=== PATIENT | female | born 1985 | race Caucasian/White ===

== ENCOUNTER 2020-09-11 14:05 | Observation (INO) | payer OTHER ==
[~2020-09-11] VITALS: Ht 161 cm; Wt 83.9 kg
[2020-09-11 14:26] VITALS: BP 104/65
[2020-09-11] MEDS ORDERED: PREN-217 PO (14:28)
[2020-09-11 15:36] LABS: COVID AG,FIA SOURCE NASOPHARYNGEAL
== END 2020-09-11 15:40 | disposition home or self-care (01) ==
LOC: 4S 14:05
PROVIDERS: ADMIT Obstetrics & Gynecology; ATTEND Obstetrics & Gynecology
DX: O09.523 Supervision of elderly multigravida, third trimester (principal); Z20.828 Contact with and (suspected) exposure to other viral communicable diseases; Z3A.37 37 weeks gestation of pregnancy
CPT/HCPCS: 59025; 76805; 87426; 99219

== ENCOUNTER 2020-09-21 12:45 | Inpatient (IN) | payer OTHER ==
[~2020-09-21] VITALS: Ht 160 cm; Wt 89.8 kg
[~2020-09-21 12:45] MED LIST: PREN-217 PO
[2020-09-21] MEDS: OXYGEN THERAPY IH SCH ×2 (13:00→20:00)
[2020-09-21] MEDS ORDERED: FentaNYL CITRATE-PF 100 MCG/2 ML VIAL IVP PRN (13:00)
[2020-09-21] MEDS ORDERED: MINERAL OIL 90 ML BOTTLE TP ONE (13:00)
[2020-09-21] MEDS ORDERED: CITRIC ACID/SODIUM CITRATE 30 ML SOLUTION UDCUP PO PRN (13:00)
[2020-09-21] MEDS ORDERED: METHYLERGONOVINE MALEATE 0.2 MG/ML VIAL IM PRN (13:00)
[2020-09-21] MEDS ORDERED: RINGERS SOLUTION,LACTATED 1,000 ML IV PRN (13:00)
[2020-09-21] MEDS ORDERED: MISOPROSTOL 50 MCG TABLET PR ONE (13:00)
[2020-09-21] MEDS ORDERED: LIDOCAINE/PF 1% 30 ML VIAL SQ PRN (13:00)
[2020-09-21] MEDS ORDERED: MISOPROSTOL 25 MCG TABLET PR ONE (13:00)
[2020-09-21] MEDS ORDERED: OXYTOCIN 30 UNITS/LACT RINGERS 500 ML IV ONE (13:00)
[2020-09-21] MEDS ORDERED: METOCLOPRAMIDE HCL 5 MG/ML 2 ML VIAL IVP PRN (13:00)
[2020-09-21] MEDS ORDERED: MINERAL OIL 30 ML UDCUP VG ONE (13:15)
[2020-09-21 13:22] LABS: BASOPHILS % (AUTO) 0.4 % (0.0-2.0); EOSINOPHILS % (AUTO) 0.2 % (1.0-6.0); HEMATOCRIT 38.7 % (36-46); HEMOGLOBIN 12.8 g/dL (12.0-16.0); LYMPHOCYTES # (AUTO) 2.3 K/uL (1.0-4.8); LYMPHOCYTES % (AUTO) 23.5 % (22.0-44.0); MEAN CORPUSCULAR HEMOGLOBIN 31.2 pg (26.0-34.0); MEAN CORPUSCULAR VOLUME 95 fL (80-100); MONOCYTES # (AUTO) 0.5 K/uL (0.1-1.0); MONOCYTES % (AUTO) 5.1 % (2.0-9.0); NEUTROPHILS % (AUTO) 70.8 % (40.0-70.0); PLATELET COUNT (AUTO) 150 K/uL (150-450); RED CELL DISTRIBUTION WIDTH 13.1 % (11.5-14.5)
[2020-09-21] MEDS: RINGERS SOLUTION,LACTATED 1,000 ML IV SCH ×2 (13:47→16:54)
[2020-09-21 13:48] VITALS: BP 98/57
[2020-09-21] MEDS ORDERED: DiphenhydrAMINE HCL 50 MG/ML VIAL IVP PRN (14:30)
[2020-09-21] MEDS ORDERED: ONDANSETRON HCL 4 MG/2 ML VIAL IVP PRN (14:30)
[2020-09-21] MEDS ORDERED: ROPIVACAINE HCL/PF 0.2% 100 ML ED PRN (14:30)
[2020-09-21] MEDS ORDERED: OXYTOCIN 30 UNITS/LACT RINGERS 500 ML IV PRN (15:00)
[2020-09-21 15:26] LABS: COVID AG,FIA SOURCE NASOPHARYNGEAL
[2020-09-21] MEDS ORDERED: BUPIVACAINE HCL/PF 0.25% 10 ML VIAL IM ONE (16:22)
[2020-09-21] MEDS ORDERED: RINGERS SOLUTION,LACTATED 1,000 ML IV ONE (18:30)
[2020-09-21] MEDS ORDERED: OxyCODONE HCL/ACETAMINOPHEN 5-325 MG TABLET PO PRN ×2 (18:30)
[2020-09-21] MEDS ORDERED: MEASLES/MUMPS/RUBELLA VACCINE, LIVE 0.5 ML/VIAL SQ ONE (18:30)
[2020-09-21] MEDS ORDERED: GLYCERIN/WITCH HAZEL LEAF 40 PADS JAR TP PRN (18:30)
[2020-09-21] MEDS ORDERED: LANOLIN 7 GM OINTMENT TP PRN (18:30)
[2020-09-21] MEDS ORDERED: BENZOCAINE 20%/MENTHOL 56 GM SPRAY CANISTER TP PRN (18:30)
[2020-09-21] MEDS: IBUPROFEN 600 MG TABLET PO PRN (20:29)
[2020-09-21] MEDS ORDERED: MAGNESIUM HYDROXIDE SUSPENSION 30 ML UDCUP PO SCH (21:00)
[2020-09-22] MEDS: IBUPROFEN 600 MG TABLET PO PRN (05:49)
[2020-09-22] MEDS ORDERED: IBUP-2071 PO (16:52)
[2020-09-22] MEDS ORDERED: FERR-89 PO (16:53)
[2020-09-22] MEDS ORDERED: DOCU-275 PO (16:54)
== END 2020-09-22 19:12 | disposition home or self-care (01) | DRG 807 ==
LOC: OBSVTOIN 12:45 → 4S 12:45
PROVIDERS: ADMIT Obstetrics & Gynecology; ATTEND Obstetrics & Gynecology
PROC: 10E0XZZ Delivery of Products of Conception, External Approach (ICD-10-PCS; principal; 2020-09-21)
PROC: 10907ZC Drainage of Amniotic Fluid, Therapeutic from Products of Conception, Via Natural or Artificial Opening (ICD-10-PCS; 2020-09-21)
PROC: 3E0R3BZ Introduction of Anesthetic Agent into Spinal Canal, Percutaneous Approach (ICD-10-PCS; 2020-09-21)
PROC: 00HU33Z Insertion of Infusion Device into Spinal Canal, Percutaneous Approach (ICD-10-PCS; 2020-09-21)
PROC: 3E0234Z Introduction of Serum, Toxoid and Vaccine into Muscle, Percutaneous Approach (ICD-10-PCS; 2020-09-21)
DX: O80 Encounter for full-term uncomplicated delivery (principal); Z37.0 Single live birth; Z20.828 Contact with and (suspected) exposure to other viral communicable diseases; O09.513 Supervision of elderly primigravida, third trimester; Z3A.39 39 weeks gestation of pregnancy; Z23 Encounter for immunization
CPT/HCPCS: 86850; 86900; 86901; 87426; 99219; J2590; J2795; J3490; J7120